=== PATIENT | female | born 1950 | race Caucasian/White ===

== ENCOUNTER 2018-06-21 08:37 | Day surgery (SDC) | payer MEDICARE, OTHER ==
[~2018-06-21] VITALS: Ht 154.9 cm; Wt 69.4 kg
[~2018-06-21 08:37] MED LIST: ASPI325; Antivert25 MG PO; LOSA25; LOSHYD100; NEBI5; PRAV20; PRAVASTATIN SOD10 MG
[2018-06-21] MEDS ORDERED: ATEN25 (09:15)
--- NOTE | 2018-06-21 09:55 | NUR ---
06/21/18 0954 Kimi Rasmussen 0948 CHECKED ON PT. INFORMED PT. WOULD BE COMING IN SHORTLY TO SEE HER. PT. VERBALIZES BEING WARM ENOUGH, PT. DIDN'T WANT A BLANKET WHEN OFFERED. AT PT.'S SIDE.
== END 2018-06-21 11:30 | disposition home or self-care (01) ==
LOC: ORSCSDS 08:37
PROVIDERS: Internal Medicine Gastroenterology
PROC: 0DBK8ZX Excision of Ascending Colon, Via Natural or Artificial Opening Endoscopic, Diagnostic (ICD-10-PCS; principal; 2018-06-21 10:00)
DX: Z12.11 Encounter for screening for malignant neoplasm of colon (principal); Z86.010 Personal history of colon polyps; D12.2 Benign neoplasm of ascending colon; K57.30 Diverticulosis of large intestine without perforation or abscess without bleeding; K64.8 Other hemorrhoids; E78.5 Hyperlipidemia, unspecified; I10 Essential (primary) hypertension; Z79.899 Other long term (current) drug therapy
CPT/HCPCS: 88305; J7120

== ENCOUNTER → 2019-09-20 | Outpatient (CLI) | payer MEDICARE, BC ==
[~2019-09-20] MED LIST changes: +ATEN25
== END | disposition home or self-care (01) ==
LOC: LAB SHORT 09:28 → PLD 09:28
DX: L72.0 Epidermal cyst (principal)
CPT/HCPCS: 88304

== ENCOUNTER → 2020-04-05 | Outpatient (CLI) | payer MEDICARE, BC | LOC: LAB 12:25 → LAB SHORT 12:25 | DX: R82.90 Unspecified abnormal findings in urine (principal) | CPT/HCPCS: 87077; 87086; 87186 ==

== ENCOUNTER → 2020-04-15 | Outpatient (CLI) | payer MEDICARE, BC | END | disposition home or self-care (01) | LOC: LAB 15:48 → LAB SHORT 15:48 | DX: R10.30 Lower abdominal pain, unspecified (principal) | CPT/HCPCS: 87086 ==

== ENCOUNTER → 2020-07-29 | Outpatient (CLI) | payer MEDICARE, BC ==
[2020-07-29 15:38] LABS: Creatinine Urine 23.4 mg/dL (27.00-270.00)
[2020-07-29 15:47] LABS: Calcium, Urine <5.0 mg/dL (< 17.5); Calcium, Urine Calculation Unable to Calculate mg/24hrs (42.0-353.0)
== END | disposition home or self-care (01) ==
LOC: PLD 07:20 → LAB SHORT 07:20
PROVIDERS: Internal Medicine
DX: E83.52 Hypercalcemia (principal)
CPT/HCPCS: 81050; 82340; 82570

== ENCOUNTER 2021-12-18 08:23 | Day surgery (SDC) | payer MEDICARE, BC ==
[~2021-12-18] VITALS: Ht 154.9 cm; Wt 58.9 kg
--- NOTE | 2021-12-18 09:08 | NUR ---
12/18/21 0908 Lynne Alanis TWO ATTEMPTS AT IV. FIRST ATTEMPT AT IV BY MA IN RIGHT FOREARM UNABLE TO ADVANCE. SECOND ATTEMPT AT IV BY MA IN RIGHT AC SUCCESSFUL.
== END 2021-12-18 10:35 | disposition home or self-care (01) ==
LOC: ORSCSDS 08:23
PROVIDERS: Internal Medicine Gastroenterology
PROC: 0DJD8ZZ Inspection of Lower Intestinal Tract, Via Natural or Artificial Opening Endoscopic (ICD-10-PCS; principal; 2021-12-18 09:45)
DX: Z12.11 Encounter for screening for malignant neoplasm of colon (principal); K57.30 Diverticulosis of large intestine without perforation or abscess without bleeding; K64.8 Other hemorrhoids; Z86.010 Personal history of colon polyps; I10 Essential (primary) hypertension; E83.52 Hypercalcemia; Z79.899 Other long term (current) drug therapy
CPT/HCPCS: J2704; J7120

== ENCOUNTER → 2022-05-15 | Outpatient (CLI) | payer MEDICARE, BC | END | disposition home or self-care (01) | LOC: LAB 10:30 → LAB SHORT 10:30 | DX: E83.52 Hypercalcemia (principal) | CPT/HCPCS: 81050 ==

== ENCOUNTER → 2023-09-10 | Outpatient (CLI) | payer MEDICARE, BC | END | disposition home or self-care (01) | LOC: LAB SHORT 17:32 → LAB 17:32 | DX: N61.1 Abscess of the breast and nipple (principal) ==

== ENCOUNTER 2024-01-17 18:13 | Emergency (ER) | payer MEDICARE, BC ==
[~2024-01-17] VITALS: Ht 152.4 cm; Wt 59.0 kg
[~2024-01-17 18:13] MED LIST changes: +Magic Bullet10 MG PR; +Magnesium Citr296 ML PO
[2024-01-17 19:41] LABS: Hematocrit 35.6 % (33.0-51.0); Hemoglobin 11.6 g/dL (11.5-16.0); Mean Corpuscular HGB 29.8 pg (26.0-34.0); Mean Corpuscular HGB Conc 32.6 g/dL (31.5-36.5); Mean Corpuscular Volume 92 fL (80-100); Mean Platelet Volume 9.9 fL (9.1-12.4); Platelet Count 218 K/mm3 (150-400); RDW Coefficient Variation 16.8 % (11.7-14.2); Red Blood Cell Count 3.89 M/mm3 (3.80-5.20); White Blood Cell Count 13.01 K/mm3 (4.00-11.30)
[2024-01-17 20:04] LABS: BAND PERCENT MAN 10 % (0-8); BASOPHILS PERCENT MAN 0 % (0-2); EOSINOPHILS PERCENT MAN 0 % (0-6); LYMPHOCYTES ABSOLUTE MAN 0.26 K/mm3 (0.84-5.20); LYMPHOCYTES PERCENT MAN 2 % (21-46); MONOCYTES ABSOLUTE MAN 1.04 K/mm3 (0.16-1.47); MONOCYTES PERCENT MAN 8 % (4-13); SEG NEUTROPHILS PERCENT MAN 80 % (41-73); TOTAL CELLS COUNTED 100
[2024-01-17 20:05] LABS: Influenza A, PCR NEGATIVE (NEGATIVE); Influenza B, PCR NEGATIVE (NEGATIVE); Resp Syncytial Virus, PCR NEGATIVE (NEGATIVE); SARS-Cov-2 (COVID-19) PCR, MMC NEGATIVE (NEGATIVE)
[2024-01-17 20:06] LABS: Albumin, Blood 3.3 g/dL (3.4-5.0); Albumin/Globulin Ratio 1.1 (0.8-1.8); Bilirubin, Total 2.9 mg/dL (0.1-1.0); Bun/Creatinine Ratio 35.7 (12.0-20.0); Calcium, Blood 10.2 mg/dL (8.5-10.1); Creatinine, Blood 0.62 mg/dL (0.40-1.00); Total Protein, Blood 6.3 g/dL (6.4-8.2)
[2024-01-17 21:14] VITALS: BP 103/52
== END 2024-01-17 21:19 | disposition home or self-care (01) ==
LOC: ER 18:13
PROVIDERS: Physician Assistant
DX: K21.9 Gastro-esophageal reflux disease without esophagitis (principal); Z11.52 Encounter for screening for COVID-19; Z79.899 Other long term (current) drug therapy
CPT/HCPCS: 0241U; 71046; 80053; 83735; 85025; 93005; 93010; 99284-25

== ENCOUNTER 2024-04-26 21:54 | Observation (INO) | payer MEDICARE, BC ==
[~2024-04-26] VITALS: Ht 154.9 cm; Wt 60.9 kg
[~2024-04-26 21:54] MED LIST changes: -ATEN25; +ATEN25 PO; +LOSARTAN-HCTZ1 EAC5 PO; -LOSHYD100
[2024-04-26 22:46] LABS: BASOPHILS ABSOLUTE AUTO 0.02 K/mm3 (0.00-0.23); BASOPHILS PERCENT AUTO 0 % (0-2); EOSINOPHILS ABSOLUTE AUTO 0.04 K/mm3 (0.00-0.68); EOSINOPHILS PERCENT AUTO 0 % (0-6); Hematocrit 44.7 % (33.0-51.0); Hemoglobin 14.7 g/dL (11.5-16.0); IMMATURE GRAN ABSOLUTE AUTO 0.04 K/mm3 (0.00-0.10); IMMATURE GRAN PERCENT AUTO 0 % (0-1); LYMPHOCYTES ABSOLUTE AUTO 0.78 K/mm3 (0.84-5.20); LYMPHOCYTES PERCENT AUTO 8 % (21-46); MONOCYTES ABSOLUTE AUTO 0.19 K/mm3 (0.16-1.47); MONOCYTES PERCENT AUTO 2 % (4-13); Mean Corpuscular HGB 28.2 pg (26.0-34.0); Mean Corpuscular HGB Conc 32.9 g/dL (31.5-36.5); Mean Corpuscular Volume 86 fL (80-100); Mean Platelet Volume 10.4 fL (9.1-12.4); NEUTROPHILS ABSOLUTE AUTO 8.56 K/mm3 (1.96-9.15); NEUTROPHILS PERCENT AUTO 89 % (41-73); Platelet Count 222 K/mm3 (150-400); RDW Coefficient Variation 14.4 % (11.7-14.2); RDW Standard Deviation 44.5 fL (35.1-46.3); Red Blood Cell Count 5.22 M/mm3 (3.80-5.20); White Blood Cell Count 9.63 K/mm3 (4.00-11.30)
[2024-04-26 22:56] LABS: Albumin, Blood 3.6 g/dL (3.4-5.0); Bilirubin, Total 0.7 mg/dL (0.1-1.0); Bun/Creatinine Ratio 30.3 (12.0-20.0); Calcium, Blood 10.7 mg/dL (8.5-10.1); Creatinine, Blood 0.69 mg/dL (0.40-1.00); Globulin, Blood 3.6 g/dL (2.2-4.0); Potassium, Blood 3.8 mmol/L (3.5-5.5); Total Protein, Blood 7.2 g/dL (6.4-8.2)
[2024-04-26] MEDS ORDERED: Ondansetron HCl 2 MG / ML 2ML Vial IV ONE (23:00)
[2024-04-26] MEDS ORDERED: FentaNYL Citrate 50 MCG/ML 2 ML Injection IV PRN (23:05)
[2024-04-26 23:56] LABS: D-Dimer, Quantitative 3.28 mg/L FEU (0.00-0.52); International Normalized Ratio 0.97; Prothrombin Time Results 10.4 Sec (9.7-11.5)
[2024-04-27] VITALS (14 sets, daily range): BP systolic 103–162; BP diastolic 52–80
[2024-04-27] MEDS ORDERED: ANASTROZOLE1 M7 PO (02:00)
[2024-04-27] MEDS ORDERED: FentaNYL Citrate 50 MCG/ML 2 ML Injection IV PRN (03:45)
[2024-04-27] MEDS ORDERED: Ondansetron HCl 2 MG / ML 2ML Vial IV PRN (03:45)
[2024-04-27] MEDS ORDERED: NS 1,000 ML IV SCH (03:45)
[2024-04-27] MEDS ORDERED: FLU VACC TS2024-25(6MOS UP)/PF 45 MCG/0.5 ML SYRINGE IM SCH (03:45)
[2024-04-27] MEDS ORDERED: Ampicillin Sod/Sulbactam Sod 3 GM in NS 100 ML IV SCH (04:00)
[2024-04-27] MEDS ORDERED: FentaNYL Citrate 50 MCG/ML 2 ML Injection IV ONE (04:30)
--- NOTE | 2024-04-27 05:33 | NUR ---
SHIFT SUMMARY PT ER ADMIT THIS SHIFT FOR ACUTE SANTO. PT HAS BEEN PAINFUL, ESPECIALLY WHEN LAYING WITH THE HOB FLAT. PT REPORTS IMPROVEMENT IN PAIN WITH HOB ELEVATED. PT REPORTS PAIN IS IN BACK. PT HAS BEEN RECEIVING FENTANYL FOR PAIN, AND REQUIRED AN ADDITIONAL DOSE FOR BREAKTHROUGH PAIN PER ORDERS. IV STARTED, IVF INFUSING. PT NPO. PRE OP WASH DONE. PT A/OX4, MAKES NEEDS KNOWN. SURIGCAL CONSULT IN PLACE. BED IN LOWEST POSITION, CALL LIGHT WITHIN REACH.
[2024-04-27 05:56] LABS: Hematocrit 41.7 % (33.0-51.0); Mean Corpuscular HGB 29.1 pg (26.0-34.0); Mean Corpuscular HGB Conc 33.6 g/dL (31.5-36.5); Mean Corpuscular Volume 87 fL (80-100); Mean Platelet Volume 9.9 fL (9.1-12.4); Platelet Count 162 K/mm3 (150-400); RDW Coefficient Variation 14.6 % (11.7-14.2); RDW Standard Deviation 45.8 fL (35.1-46.3); Red Blood Cell Count 4.81 M/mm3 (3.80-5.20); White Blood Cell Count 4.03 K/mm3 (4.00-11.30)
[2024-04-27 06:51] LABS: Albumin, Blood 3.3 g/dL (3.4-5.0); Albumin/Globulin Ratio 1.1 (0.8-1.8); Bilirubin, Total 1.7 mg/dL (0.1-1.0); Bun/Creatinine Ratio 32.4 (12.0-20.0); Calcium, Blood 10.6 mg/dL (8.5-10.1); Creatinine, Blood 0.74 mg/dL (0.40-1.00); Globulin, Blood 3.1 g/dL (2.2-4.0); Potassium, Blood 3.2 mmol/L (3.5-5.5); Total Protein, Blood 6.4 g/dL (6.4-8.2)
[2024-04-27 07:06] LABS: BAND PERCENT MAN 16 % (0-8); BASOPHILS PERCENT MAN 0 % (0-2); EOSINOPHILS PERCENT MAN 0 % (0-6); LYMPHOCYTES ABSOLUTE MAN 0.24 K/mm3 (0.84-5.20); LYMPHOCYTES PERCENT MAN 6 % (21-46); MONOCYTES ABSOLUTE MAN 0.28 K/mm3 (0.16-1.47); MONOCYTES PERCENT MAN 7 % (4-13); SEG NEUTROPHILS PERCENT MAN 71 % (41-73); TOTAL CELLS COUNTED 100
--- NOTE | 2024-04-27 07:30 | NUR ---
DR CUNHA IN TO SEE PT.
--- NOTE | 2024-04-27 08:33 | NUR ---
DR TORRES IN TO SEE PT.
[2024-04-27] MEDS ORDERED: Atenolol 25 MG Tab PO SCH (09:00)
[2024-04-27] MEDS ORDERED: Losartan/HCTZ 50-12.5 TAB PO SCH (09:00)
[2024-04-27] MEDS ORDERED: Anastrozole 1 MG TAB PO SCH (09:00)
--- NOTE | 2024-04-27 11:09 | NUR ---
Pt. is awake in bed and welcomes my visit. Pt. is pleasant. Facilitated a life review and established a measure of rapport. Listen with empathy and a calming presence. Prayed for Pt. Pt. displayed evidence of having been encouraged and verbalized gratitude for the spiritual care visit.
--- NOTE | 2024-04-27 11:52 | NUR ---
PT TO MRI
[2024-04-27] MEDS ORDERED: Bupivacaine 0.5% HCl 5 MG/ML 30MLVIAL ONE (13:28)
[2024-04-27] MEDS ORDERED: Lactated Ringer's 1,000 ML IV SCH (13:30)
--- NOTE | 2024-04-27 13:45 | NUR ---
PT TO PRE OP.
--- NOTE | 2024-04-27 13:51 | NUR ---
PT HAS 20G TO RIGHT AC THAT FLUSHES WELL AND FLOWS TO GRAVITY.
[2024-04-27] MEDS ORDERED: Ondansetron HCl 2 MG / ML 2ML Vial ONE (14:04)
[2024-04-27] MEDS ORDERED: Dexamethasone Sod Phos 10 MG/ML 1ML VIAL ONE (14:04)
[2024-04-27] MEDS ORDERED: Rocuronium Bromide 10 MG/ML 5ML Injection IV ONE (14:04)
[2024-04-27] MEDS ORDERED: propofoL 20 ML IV ONE (14:05)
--- NOTE | 2024-04-27 14:35 | NUR ---
PT BROUGHT FROM FLOOR TO DAY SURGERY FOR PROCEDURE. History, Chart, Medications and Allergies reviewed before start of procedure. Lungs clear T/O to Auscultation. Patient confirms NPO status and agrees with scheduled surgery. Pre-Op teaching done. Pt verbalizes understanding. PT BELONGINGS PLACED UNDERNEATH GURNEY FOR SAFEKEEPING.
[2024-04-27] MEDS ORDERED: Sugammadex Sodium 200 MG/2ML SDV (100 MG/ML) ONE ×2 (15:01→16:00)
[2024-04-27] MEDS ORDERED: Potassium Chl 20MEQ/Water100ML 100 ML IV STA (15:32)
[2024-04-27] MEDS ORDERED: ePHEDrine Sulfate 50 MG/ML 1ML Injection ONE (15:35)
[2024-04-27] MEDS ORDERED: FentaNYL Citrate 50 MCG/ML 2 ML Injection ONE (15:40)
[2024-04-27] MEDS ORDERED: HYDROcodone 5-APAP 325 TAB PO PRN (16:00)
[2024-04-27] MEDS ORDERED: NS 250 ML IV PRN (16:15)
--- NOTE | 2024-04-27 16:59 | NUR ---
PT ARRIVED TO RM 226 FROM PACU. STOOD AND TRANSFERRED FROM [place] TO BED W/MIN ASSISTANCE. DENIES PAIN AND N/V. LAP SITES X4 W/GAUZE AND TEGADERM CDI. TELE IN PLACE, SR @ [facility] [employer]. VSS. CALL LIGHT IN REACH. ICEWATER AND JELLO PROVIDED. PT DENIES ANY OTHER NEEDS. KCL INFUSING PER ORDERS.
--- NOTE | 2024-04-27 18:59 | NUR ---
NO ACUTE CHANGES SINCE RECEIVING REPORT AT 1730 FROM PEREZ RN, PT RESTING PEACEFULLY, DENIES PAIN AND NAUSEA, TOLERATING REG DIET, VSS.
--- NOTE | 2024-04-28 04:22 | NUR ---
SHIFT SUMMARY POD 1 LAP SANTO PT SLEPT FOR MOST OF SHIFT. PT DENIES ANY PAIN. TOLERATING PO INTAKE, VOIDING. PT SBA WITH AMB. X4 LAP SITES COVERED WITH GAUZE AND TEG, ALL C/D/I. VSS. NO OTHER CONCERNS AT THIS TIME, CALL LIGHT WITHIN REACH
[2024-04-28 05:06] VITALS: BP 119/64
[2024-04-28 05:47] LABS: Albumin, Blood 2.7 g/dL (3.4-5.0); Albumin/Globulin Ratio 0.8 (0.8-1.8); Bilirubin, Total 2.1 mg/dL (0.1-1.0); Calcium, Blood 10.2 mg/dL (8.5-10.1); Creatinine, Blood 0.73 mg/dL (0.40-1.00); Globulin, Blood 3.3 g/dL (2.2-4.0); Potassium, Blood 4.1 mmol/L (3.5-5.5)
[2024-04-28 07:42] VITALS: BP 135/59
[2024-04-28] MEDS ORDERED: HYDR1TAB94 PO (11:01)
[2024-04-28 15:40] LABS: Albumin, Blood 2.7 g/dL (3.4-5.0); Albumin/Globulin Ratio 0.8 (0.8-1.8); Bilirubin, Total 0.8 mg/dL (0.1-1.0); Bun/Creatinine Ratio 23.8 (12.0-20.0); Calcium, Blood 10.6 mg/dL (8.5-10.1); Creatinine, Blood 0.84 mg/dL (0.40-1.00); Globulin, Blood 3.5 g/dL (2.2-4.0); Potassium, Blood 4.1 mmol/L (3.5-5.5); Total Protein, Blood 6.2 g/dL (6.4-8.2)
[2024-04-28 15:43] VITALS: BP 150/74
--- NOTE | 2024-04-28 18:15 | NUR ---
DISCHARGE NOTE PT A/OX4. SHAVONNE PO INTAKE WELL. VOIDING W/O ISSUE. PT HAS NOT REQUIRED ANY PAIN MEDICINE DURING SHIFT. PT HAS AMBULATED AROUND UNIT INDEPENDENTLY. LAP SITES X4 WITH GAUZE AND CLEAR DRESSING C/D/I. PT TO F/U WITH SURGEON IN 2 WEEKS. PT VERBALIZES UNDERSTANDING OF D/C INST. ESCORTED TO THE LOBBY VIA WC.
== END 2024-04-28 18:16 | disposition home or self-care (01) ==
LOC: ER 21:54 → SURS 21:55 → ERHOLD 21:55 → SURS 04-27 01:22
PROVIDERS: Emergency Medicine; Internal Medicine; Surgery; ADMIT Internal Medicine
PROC: 0FT44ZZ Resection of Gallbladder, Percutaneous Endoscopic Approach (ICD-10-PCS; principal; 2024-04-27 14:00)
DX: K81.2 Acute cholecystitis with chronic cholecystitis (principal); D05.11 Intraductal carcinoma in situ of right breast; R74.01 Elevation of levels of liver transaminase levels; E87.6 Hypokalemia; I10 Essential (primary) hypertension; E78.5 Hyperlipidemia, unspecified; Z79.899 Other long term (current) drug therapy
CPT/HCPCS: 36415; 71046; 74181; 76705; 80053; 83690; 83880; 84484; 85025; 85379; 85610; 85730; 88304; 93005; 93010; 96365; 96374; 96375; 96376; 99285-25; A9270; G0378; J0295; J1100; J2405; J2704; J3010; J3480; J7030; J7120

== ENCOUNTER 2025-01-23 09:43 | Day surgery (SDC) | payer MEDICARE, OTHER ==
[~2025-01-23] VITALS: Ht 154.9 cm; Wt 61.5 kg
[~2025-01-23 09:43] MED LIST changes: +ANASTROZOLE1 M7 PO; +HYDR1TAB94 PO
[2025-01-23] MEDS ORDERED: LOSARTAN POTAS100 MG (10:00)
[2025-01-23] MEDS ORDERED: VITAMIN D3 (10:01)
[2025-01-23] MEDS ORDERED: PRESERVISION A1 EAC1 (10:02)
[2025-01-23 12:31] VITALS: BP 137/77
== END 2025-01-23 12:28 | disposition home or self-care (01) ==
LOC: ORSCSDS 09:43
PROVIDERS: Internal Medicine Gastroenterology
PROC: 0DBL8ZX Excision of Transverse Colon, Via Natural or Artificial Opening Endoscopic, Diagnostic (ICD-10-PCS; principal; 2025-01-23 11:15)
DX: Z12.11 Encounter for screening for malignant neoplasm of colon (principal); Z86.0101 Personal history of adenomatous and serrated colon polyps; D12.3 Benign neoplasm of transverse colon; I10 Essential (primary) hypertension; E78.5 Hyperlipidemia, unspecified; E83.52 Hypercalcemia; K64.8 Other hemorrhoids; Z79.899 Other long term (current) drug therapy
CPT/HCPCS: 88305; J2704; J7120